=== PATIENT | female | born 1970 | race Hispanic/Latino ===

== ENCOUNTER 2021-08-14 17:34 | Emergency (ER) | payer SELFPAY ==
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
[2021-08-14 17:38] VITALS: BP 130/82; PULSE 53; RESP 14; TEMP 36.8; O2SAT 96
--- NOTE | 2021-08-14 18:08 | ED.GENADULT ---
HPI - General Adult General Chief complaint: Extremity Injury, Upper Stated complaint: RIGHT SHOULDER PAIN Time Seen by Provider: 08/14/21 17:44 Source: patient and family Mode of arrival: ambulatory Limitations: no limitations and language barrier History of Present Illness HPI narrative: Patient is a 51-year-old female who presents the ED with report of right shoulder pain. Patient is primarily [place]ic-speaking, however her son at bedside assisted in translation. Patient reports having pain in her anterior right shoulder for the past 1 month. 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 She states the pain is worse with full forward flexion or abduction, like when she reaches up high or down low for something. She denies any neck pain. The pain does occasionally radiate down her right arm with tingling in right fingers. No numbness. No weakness. No direct injury or fall. No pain in left shoulder. She has been taking ibuprofen at home for her pain which does temporarily relieve the pain. She last took this this morning. Related Data Allergies Allergy/AdvReac Type Severity Reaction Status Date / Time No Known Allergies Allergy Verified 08/14/21 17:35 Review of Systems Review of Systems: CONSTITUTIONAL: Denies fever. CARDIOVASCULAR: Denies chest pain. RESPIRATORY: Denies dyspnea. SKIN: Denies rash or itching. MUSCULOSKELETAL: Reports right shoulder pain, occasional radiation down right arm. Denies left shoulder pain, neck pain. NEUROLOGIC: Reports occasional tingling in right fingers. Denies numbness, or weakness. All systems reviewed & are unremarkable except as noted in HPI and below PMFSH Past Medical History Medical History Prediabetes Surgical History Surgical History (Updated 08/14/21 @ 18:14 by Bridget Ruiz PA-C) No pertinent past surgical history Social History Social History (Updated 08/14/21 @ 18:14 by Bridget Ruiz PA-C) Smoking status: Never smoker Exam Narrative: GENERAL: Well appearing, well-nourished, non-toxic, in no acute distress. HEAD: Normocephalic, atraumatic. NECK: Supple. No adenopathy, no masses. No cervical midline spinal tenderness. RESPIRATORY: Airway patent, respirations nonlabored. Clear to auscultation bilaterally, no rales, rhonchi, wheezing. CARDIOVASCULAR: Regular rate and rhythm without murmurs, rubs, or gallops. Radial pulses 2+ and equal bilaterally. MUSCULOSKELETAL: Moves all extremities. Strength/ROM intact without gross deformities. Tenderness to palpation over R anterior humeral head. Pain with right shoulder active and passive forward flexion and abduction at approx 130 degrees. Pain with external rotation of right shoulder at 90 degrees abduction. Positive Neer testing on R shoulder. Negative drop arm test. SKIN: Warm, dry, normal color. No rashes. NEURO: A&O X3. Speech clear. Cranial nerves II-XII grossly intact. Steady gait. No ataxic movements. PSYCHIATRIC: Appropriate mood and affect. Normal interaction. Course Vital Signs Vital signs: Vital Signs Temperature 98.3 F 08/14/21 17:38 Pulse Rate 53 L 08/14/21 17:38 Respiratory Rate 14 08/14/21 17:38 Blood Pressure 130/82 08/14/21 17:38 Pulse Oximetry 96 08/14/21 17:38 Temperature 98.3 F 08/14/21 19:10 Pulse Rate 74 08/14/21 19:10 Respiratory Rate 16 08/14/21 19:10 Blood Pressure 136/70 08/14/21 19:10 Pulse Oximetry 100 08/14/21 19:10 Medical Decision Making MDM Narrative Medical decision making narrative: Patient presented to ED with month-long history of right shoulder pain. 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 Vital signs stable upon arrival. Patient with tenderness anteriorly to R shoulder on exam and mild limited range of motion. No fall or direct injury. X-ray of right shoulder negative for acute fracture or dislocation. Did show suggesti
[2021-08-14] MEDS: KETOROLAC (*BKC) 60 MG/2 ML VIAL IM (18:23)
[2021-08-14 19:10] VITALS: BP 136/70; PULSE 74; RESP 16; TEMP 36.8; O2SAT 100
== END 2021-08-14 19:15 | disposition home or self-care (01) ==
PROVIDERS: Emergency Provider Emergency Medicine; PCP Registered Nurse
DX: M25.511 Pain in right shoulder (principal)
CPT/HCPCS: 73030; 96372; 99283; A4565; J1885